=== PATIENT | male | born 1940 | race Asian ===

== ENCOUNTER 2021-09-25 08:33 | Emergency (ER) | payer MEDICARE, OTHER ==
[~2021-09-25] VITALS: Ht 157.5 cm; Wt 60.0 kg
[~2021-09-25 08:33] MED LIST: LISI10TA24 PO
[2021-09-25 08:38] VITALS: BP 137/75
[2021-09-25] MEDS: PERTUSS(ACELL),DIPH,TET VAC/PF 0.5 ML SYRINGE IM. ONE (09:05)
== END 2021-09-25 09:12 | disposition home or self-care (01) ==
LOC: EMS 08:33
DX: S41.151A Open bite of right upper arm, initial encounter (principal); S81.851A Open bite, right lower leg, initial encounter; I10 Essential (primary) hypertension; Z79.899 Other long term (current) drug therapy; W54.0XXA Bitten by dog, initial encounter; Y93.89 Activity, other specified; Y92.89 Other specified places as the place of occurrence of the external cause; Y99.8 Other external cause status
CPT/HCPCS: 90471; 90715; 99283

== ENCOUNTER 2023-09-04 10:01 | Emergency (ER) | payer MEDICARE, OTHER ==
[~2023-09-04] VITALS: Ht 165.1 cm; Wt 70.5 kg
[2023-09-04 10:10] VITALS: TEMP 98.5
[2023-09-04 10:28] LABS: COVID AG,FIA SOURCE NASAL SWAB
[2023-09-04 10:59] LABS: SARS-COV2 (COVID) ANTIGEN,FIA Negative (Negative)
[2023-09-04 11:00] LABS: INFLUENZA TYPE A NEGATIVE FOR TYPE A (NEGATIVE); INFLUENZA TYPE B NEGATIVE FOR TYPE B (NEGATIVE)
[2023-09-04] MEDS ORDERED: BENZ-227 PO (11:11)
[2023-09-04] MEDS ORDERED: BENZONATATE 100 MG CAPSULE PO ONE (11:15)
[2023-09-04] MEDS ORDERED: METF-446 PO (11:18)
[2023-09-04] MEDS ORDERED: PRAV10TA39 PO (11:18)
[2023-09-04] MEDS ORDERED: LISI20TA24 PO (11:18)
[2023-09-04] MEDS ORDERED: TAMS0.4C94 PO (11:18)
[2023-09-04 11:29] VITALS: BP 152/76; PULSE 76; RESP 18
== END 2023-09-04 11:46 | disposition home or self-care (01) ==
LOC: EMS 10:01
DX: R05.9 Cough, unspecified (principal); I10 Essential (primary) hypertension; N40.0 Benign prostatic hyperplasia without lower urinary tract symptoms; E78.00 Pure hypercholesterolemia, unspecified; Z90.49 Acquired absence of other specified parts of digestive tract; Z20.822 Contact with and (suspected) exposure to COVID-19
CPT/HCPCS: 71046; 87804; 99284

== ENCOUNTER 2023-11-18 13:44 | Emergency (ER) | payer MEDICARE, OTHER ==
[~2023-11-18] VITALS: Ht 157.5 cm; Wt 56.8 kg
[~2023-11-18 13:44] MED LIST changes: +BENZ-227 PO; -LISI10TA24 PO; +LISI20TA24 PO; +METF-446 PO; +PRAV10TA39 PO; +TAMS0.4C94 PO
[2023-11-18 13:58] VITALS: BP 127/69; PULSE 91; RESP 16; TEMP 97.9
[2023-11-18 14:00] LABS: COVID AG,FIA SOURCE NASAL SWAB
[2023-11-18 14:24] LABS: SARS-COV2 (COVID) ANTIGEN,FIA Negative (Negative)
[2023-11-18 14:25] LABS: INFLUENZA TYPE A NEGATIVE FOR TYPE A (NEGATIVE); INFLUENZA TYPE B NEGATIVE FOR TYPE B (NEGATIVE)
[2023-11-18 14:29] LABS: RAPID GROUP A STREP NEGATIVE (NEGATIVE)
== END 2023-11-18 16:00 | disposition home or self-care (01) ==
LOC: EMS 13:45
DX: J06.9 Acute upper respiratory infection, unspecified (principal); E11.9 Type 2 diabetes mellitus without complications; I10 Essential (primary) hypertension; E78.00 Pure hypercholesterolemia, unspecified; N40.0 Benign prostatic hyperplasia without lower urinary tract symptoms; Z90.49 Acquired absence of other specified parts of digestive tract; Z20.822 Contact with and (suspected) exposure to COVID-19
CPT/HCPCS: 82962; 87430; 87804; 99283

== ENCOUNTER → 2024-09-02 | Emergency (ER) | payer MEDICARE, OTHER ==
[~2024-09-02] VITALS: Ht 160 cm; Wt 54.5 kg
[2024-09-02 11:33] VITALS: TEMP 97.7
[2024-09-02 12:00] LABS: COVID AG,FIA SOURCE NASAL SWAB
[2024-09-02 12:25] LABS: SARS-COV2 (COVID) ANTIGEN,FIA Negative (Negative)
[2024-09-02 12:27] LABS: INFLUENZA TYPE A NEGATIVE FOR TYPE A (NEGATIVE); INFLUENZA TYPE B NEGATIVE FOR TYPE B (NEGATIVE)
[2024-09-02 13:52] VITALS: BP 120/66; PULSE 72; RESP 16; O2SAT 100
== END | disposition still patient (30) ==
LOC: EMS 11:00
DX: J06.9 Acute upper respiratory infection, unspecified (principal); E11.9 Type 2 diabetes mellitus without complications; E78.00 Pure hypercholesterolemia, unspecified; N40.0 Benign prostatic hyperplasia without lower urinary tract symptoms; I10 Essential (primary) hypertension; Z90.49 Acquired absence of other specified parts of digestive tract; Z20.822 Contact with and (suspected) exposure to COVID-19
CPT/HCPCS: 82962; 87804; 99283

== ENCOUNTER 2024-12-21 10:08 | Emergency (ER) | payer MEDICARE, OTHER ==
[~2024-12-21] VITALS: Ht 162.6 cm; Wt 72.7 kg
[2024-12-21 10:16] VITALS: TEMP 98.4
[2024-12-21 10:29] LABS: COVID AG,FIA SOURCE NASAL SWAB
[2024-12-21 10:58] LABS: SARS-COV2 (COVID) ANTIGEN,FIA Negative (Negative)
[2024-12-21 10:59] LABS: INFLUENZA TYPE A NEGATIVE FOR TYPE A (NEGATIVE); INFLUENZA TYPE B NEGATIVE FOR TYPE B (NEGATIVE)
[2024-12-21 11:08] VITALS: BP 126/82; PULSE 78; RESP 16; O2SAT 98
[2024-12-21] MEDS ORDERED: METF-1211 PO (11:11)
[2024-12-21] MEDS: ACETAMINOPHEN 500 MG TABLET PO ONE (11:19)
[2024-12-21] MEDS: GuaiFENesin/D-METHORPHAN [SUGAR-FREE] 200-20MG/10 ML SYRUP UDCUP PO ONE (11:19)
[2024-12-21] MEDS ORDERED: GUAIFDM PO (11:21)
[2024-12-21] MEDS ORDERED: ACET-66 PO (11:21)
== END 2024-12-21 12:00 | disposition home or self-care (01) ==
LOC: EMS 10:13
DX: J06.9 Acute upper respiratory infection, unspecified (principal); E11.9 Type 2 diabetes mellitus without complications; E78.00 Pure hypercholesterolemia, unspecified; I10 Essential (primary) hypertension; N40.0 Benign prostatic hyperplasia without lower urinary tract symptoms; Z79.899 Other long term (current) drug therapy; Z90.49 Acquired absence of other specified parts of digestive tract; Z20.822 Contact with and (suspected) exposure to COVID-19
CPT/HCPCS: 71045; 82962; 87804; 99284

== ENCOUNTER 2025-07-23 10:58 | Emergency (ER) | payer MEDICARE, OTHER ==
[~2025-07-23] VITALS: Ht 157.5 cm; Wt 54.5 kg
[~2025-07-23 10:58] MED LIST changes: +ACET-66 PO; -BENZ-227 PO; +GUAIFDM PO; +METF-1211 PO; -METF-446 PO; +PRAV10TA37 PO; -PRAV10TA39 PO
[2025-07-23 11:06] VITALS: TEMP 97.9
[2025-07-23 11:40] VITALS: BP 143/67; PULSE 79; RESP 16; O2SAT 98
[2025-07-23 12:27] LABS: GLUCOMETER DEV NAME(LOC) ER.7; GLUCOSE,POINT OF CARE 120 MG/DL (70-110)
[2025-07-23 13:36] LABS: PLATELET COUNT (AUTO) 172 K/uL (150-450); RED BLOOD CELL COUNT(AUTO) 4.76 MIL/uL (4.50-5.90); RED CELL DISTRIBUTION WIDTH 13.9 % (11.5-14.5); WHITE BLOOD COUNT (AUTO) 4.8 K/uL (4.5-11.0)
[2025-07-23 13:44] LABS: CALCIUM, TOTAL 8.9 mg/dL (8.8-10.5); CREATININE 0.98 mg/dL (0.60-1.30); GLOMERULAR FILTR. RATE CALC > 60 mL/min (>60); GLUCOSE,RANDOM 101 mg/dL (70-110); SODIUM SERUM 138 mmol/L (136-145); UREA NITROGEN, BLOOD 15 mg/dL (7-18)
[2025-07-23 14:10] LABS: APPEARANCE,URINE CLEAR (CLEAR); GLUCOSE, URINE (UA) NEGATIVE (NEGATIVE); LEUKOCYTE ESTERASE ,URINE NEGATIVE (NEGATIVE); NITRATE,URINE NEGATIVE (NEGATIVE); OCCULT BLOOD,URINE NEGATIVE (NEGATIVE); SPECIFIC GRAVITIY, URINE 1.004 (1.003-1.030)
[2025-07-23 14:10] LABS: ASPARTATE AMINOTRANSFERASE 19.0 U/L (15-37); TOTAL PROTEIN, SERUM 7.5 g/dL (6.4-8.2)
== END 2025-07-23 15:23 | disposition home or self-care (01) ==
LOC: EMS 12:02
DX: I80.3 Phlebitis and thrombophlebitis of lower extremities, unspecified (principal); E11.9 Type 2 diabetes mellitus without complications; E78.00 Pure hypercholesterolemia, unspecified; I10 Essential (primary) hypertension; Z90.49 Acquired absence of other specified parts of digestive tract; Z79.899 Other long term (current) drug therapy
CPT/HCPCS: 80048; 80076; 81003; 82962; 83880; 85025; 93970; 99284